=== PATIENT | female | born 1985 | race Caucasian/White ===

== ENCOUNTER 2024-05-26 20:13 | Emergency (ER) | payer SELFPAY ==
[2024-05-26 20:26] VITALS: BP 130/83; PULSE 94; TEMP 36.7; O2SAT 100; BMI 24.8
--- NOTE | 2024-05-26 21:19 | ED_ITS ---
HPI HPI - General Adult General Chief complaint: Skin/Abscess/Foreign Body Stated complaint: rash on neck Time Seen by Provider: 05/26/24 21:05 Source: patient Mode of arrival: walk-in Limitations: no limitations History of Present Illness HPI narrative: 38-year-old female presents for a rash. Its on the left jaw and on her neck. It is not painful. She has noticed a few others particularly on the right side of her face. She has had this for several days. The patient herself has no psychiatric complaints. She is not suicidal or homicidal and has no thoughts of harming herself. She states she is taking her psychiatric medications. A male who accompanied her talk to me outside the room and said that he would like to have her evaluated for psychiatric issues. Related Data Home Medications ?Medication ?Instructions ?Recorded ?Confirmed buprenorphine 8 mg-naloxone 2 mg 1 tab sublingual BID 05/26/24 05/26/24 sublingual tablet dextroamphetamine-amphetamine 15 15 mg PO DAILY 05/26/24 05/26/24 mg tablet (Adderall) dextroamphetamine-amphetamine ER 30 mg PO DAILY 05/26/24 05/26/24 30 mg 24hr capsule,extend release (Adderall XR) Previous Rx's ?Medication ?Instructions ?Recorded clindamycin HCl 300 mg capsule 300 mg PO Q6H 10 days #40 caps 05/26/24 mupirocin 2 % topical ointment 1 applic topical BID #22 grams 05/26/24 Allergies Allergy/AdvReac Type Severity Reaction Status Date / Time Penicillins AdvReac Unknown Unconscious Verified 05/26/24 20:30 Opioid HPI Opioid Management Most Recent Opioid Data: No Data to Display Review of Systems ROS Narrative A ten point review of systems is negative except as noted above. PFSH PFSH Social History Little interest or pleasure in doing things: not at all Feeling down, depressed, or hopeless: not at all Exam Narrative Exam Narrative: Nurses note and vital signs reviewed and patient is not hypoxic. General: The patient appears well and in no apparent distress. Patient is resting comfortably on cart. Skin: Warm, dry, no pallor noted. There is erythematous rash present not in a dermatomal distribution. It is on the left jaw area but also on the left anterolateral area of her neck. There is no open area or drainage. It is erythematous and has the appearance of impetigo Head: Normocephalic, atraumatic Eye: Normal conjunctiva, no drainage Ears, Nose, Mouth, and Throat: oral mucosa is moist. Nares patent. Cardiovascular: Regular Rate and Rhythm Respiratory: Patient is in no distress, no accessory muscle use Back: non-tender GI: Normal bowel sounds, no tenderness to palpation, no masses appreciated. No rebound, guarding, or rigidity noted. Musculoskeletal: No joint swelling Neurological: A&O, normal speech Psychiatric: Cooperative, answers all questions appropriately, makes good eye contact Constitutional Vital Signs, click to edit/add: Last Vital Signs Temp 98.1 F 05/26/24 20:26 Pulse 94 H 05/26/24 20:26 Resp 16 05/26/24 20:26 BP 130/83 05/26/24 20:26 Pulse Ox 100 05/26/24 20:26 O2 Del Method Room Air 05/26/24 20:26 Course Vital Signs Vital signs: Vital Signs Temperature 98.1 F 05/26/24 20:26 Pulse Rate 94 H 05/26/24 20:26 Respiratory Rate 16 05/26/24 20:26 Blood Pressure 130/83 05/26/24 20:26 Pulse Oximetry 100 05/26/24 20:26 Oxygen Delivery Method Room Air 05/26/24 20:26 Temperature 98.1 F 05/26/24 20:26 Pulse Rate 94 H 05/26/24 20:26 Respiratory Rate 16 05/26/24 20:26 Blood Pressure 130/83 05/26/24 20:26 Pulse Oximetry 100 05/26/24 20:26 Oxygen Delivery Method Room Air 05/26/24 20:26 Medical Decision Making MDM Narrative Medical decision making narrative: She will be treated with clindamycin and mupirocin. I asked her about any mental health issues a second time and she adamantly denies having any thoughts of harming herself or feeling particularly depressed. She states she is taking her medication and has a psychiatrist and a counselor that she can follow-up with if she needs to do so. She does not want any mental health evaluation. At 1 point the male who accompanied her raised his voice and started pointing his fingers at me and threatened a lawsuit. At this point I ended my conversation with him. Differential Diagnosis Differential Diagnosis: Cellulitis, impetigo Discharge Plan Discharge Chief Complaint: Skin/Abscess/Foreign Body Clinical Impression: Cellulitis Patient Disposition: Home, Self-Care Time of Disposition Decision: 21:13 Condition: Good Mode of Transportation: Private Vehicle Prescriptions / Home Meds: New mupirocin 2 % ointment 1 applic topical BID Qty: 22 0RF clindamycin HCl 300 mg capsule 300 mg PO Q6H 10 Days Qty: 40 0RF No Action buprenorphine-naloxone 8-2 mg tablet, sublingual 1 tab SUBLINGUAL BID dextroamphetamine-amphetamine [Adderall XR] 30 mg capsule,extended release 24hr 30 mg PO DAILY dextroamphetamine-amphetamine [Adderall] 15 mg tablet 15 mg PO DAILY Print Language: Turkish Instructions: Cellulitis (ED) Referrals: Physician,Non-Staff, MD [Primary Care Provider] - 1 week
--- NOTE | 2024-05-26 21:38 | PC.NURSE ---
complains of a rash to her left side of her neck, onset 1 week ago and this patient voices no other complaints,visible red area to this left side of this patient's neck, denies itching to this rash
--- NOTE | 2024-05-26 22:14 | PC.NURSE ---
i gave this patient verbal and paper discharge orders along with 2 Rx and this patient voices yes to understanding these. at time of discharge this patient voices no concerns and shows no signs of distress
== END 2024-05-26 21:35 | disposition home or self-care (01) ==
PROVIDERS: Emergency Provider Emergency Medicine
DX: L03.211 Cellulitis of face (principal)
CPT/HCPCS: 99283